=== PATIENT | female | born 1985 | race Hispanic/Latino ===

== ENCOUNTER 2020-06-03 08:37 | Inpatient (IN) | payer MEDICAID ==
--- NOTE | 2020-06-03 09:28 | History and Physical Report ---
History of Present Illness Date of examination: 06/03/20 (Pt here today for IOL; GDM on meds) Date of admission: 06/03/20 08:37 History of present illness: EDC Confirmation: 06/10/2020 Gestational Age: 39w0/7 weeks Past History : 2 Term Births: 1 Premature Births: 0 Living Children: 1 Para: 1 Mult. Births: 0 Prev : 0 Aborta: 0 Elect. Ab: 0 Spont. Ab: 0 Ectopics: 0 # 1 Delivery date: 2006 Weeks Gestation: term labor: no Delivery type: Anesthesia type: none Delivery location: [facility] [place] Infant Sex: Female weight: 6-11 Past Medical History: Reviewed history and no changes required: Gestational Diabetes Past Surgical History: Reviewed history and no changes required: negative Past Medical History Anesthesia Complications: negative Anemia: negative Autoimmune Disorder: negative Bleeding Disorder: negative Blood Transfusions: negative Breast Disease: negative Diabetes: negative Heart Disease: negative Hypertension: negative Hepatitis/Liver Disease: negative Kidney Disease/UTI: negative Neurologic/Epilepsy/Migraines: negative Phlebitis/Varicosities: negative Psychiatric: negative Pulmonary Disease/Asthma: negative Thyroid Disease: negative Hospitalizations: negative Surgery (Non-negative turner): negative Abnormal PAP: negative LOS Exposure: negative Infertility: negative Uterine Anomaly: negative Uterine Surgery (not C/S): negative Other Gynecologic Problems: negative Family Hx: Breast CA: grandmother Lung CA: grandfather Diabetes: Mother, Sister Infection History Hx of STD: none HIV Risk Eval: no Hepatitis B Risk Eval: low risk Personal hx. of genital herpes: no Partner hx. of genital herpes: no Rash, Viral, or Febrile illness since last LMP? no Varicella/Chicken Pox Status: Previous Disease TB Risk: no Genetic History ADVANCED MATERNAL AGE Congenital Heart Defect: Mom: no Dad: no David Disease: Mom: no Dad: no Thalassemia Mom: no Dad: no Neural Tube Defect Mom: no Dad: no Down's Syndrome Mom: no Dad: no Harman-Sachs Mom: no Dad: no Sickle Cell Disease/Trait Mom: no Dad: no Hemophilia Mom: no Dad: no Muscular Dystrophy Mom: no Dad: no Cystic Fibrosis Mom: no Dad: no Geraldo Chorea Mom: no Dad: no Mental Retardation Mom: no Dad: no Fragile X Mom: no Dad: no Other Genetic/Chromosomal Disorder Mom: yes Dad: no Child w/other defect Mom: no Dad: no Comments/Counseling: Sister: MTHFR heterozygous mutation of this genetic disorder Enviromental Exposures Enviromental Exposures Reviewed Xray Exposure: no Medication, drug, or alcohol use since LMP: no Chemical/Other Exposure: no Exposure to Cat Liter: yes Hx of Parvovirus (Fifth Disease): no Occupational Exposure to Children: none 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 Medications: None Current Allergies (reviewed today): * AMOXICILLIN (Critical) Past History - Obstetrical History Expected Date of Delivery: 06/10/20 Actual Gestation: 39 Week(s) 0 Day(s) : 2 Para: 1 Hx # Term Pregnancies: 1 Number of Pregnancies: 0 Spontaneous Abortions: 0 Induced : 0 Number of Living Children: 1 Medications and Allergies Allergies Allergy/AdvReac Type Severity Reaction Status Date / Time amoxicillin Allergy Mild Hives Verified 06/03/20 10:01 Review of Systems All systems: negative - Physical Exam Breasts: Positive: deferred Cardiovascular: Regular rate, Normal S1, Normal S2 Lungs: Positive: Clear to auscultation Abdomen: Positive: normal appearance, soft, normal bowel sounds. Negative: distention, tenderness Genitourinary (Female): Positive: normal external genitalia Vulva: both: normal Vagina: Positive: normal moisture. Negative: discharge Cervix: Negative: lesion, discharge Uterus: Positive: normal size, normal contour Adnexa: both: normal Anus/Rectum: Positive: normal perianal skin, heme negative. Negative: rectal mass, hemorrhoids Extremities: Positive: normal Deep Tendon Reflex Grade: Normal +2 - Obstetrical FHR: category 1 Uterine Contraction Monitor Mode: External Cervical Dilatation: 3 Cervical Effacement Percentage: 50 station: -3 Uterine Contraction Pattern: Irregular Uterine Tone Measurement Phase: Resting Uterine Contraction Intensity: Moderate Results Result Diagrams: 06/03/20 09:51 All other labs normal. GBS NEGATIVE HBsAg Screen Negative Negative *1 RPR Non Reactive Non Reactive *2 Rubella Antibodies, IgG [L] <0.90 index Immune >0.99 *3 Non-immune <0.90 Equivocal 0.90 - 0.99 Immune >0.99 ABO Grouping A *4 Rh Factor Negative *5 Please note: Prior records for this patient's ABO / Rh type are not available for additional verification. Antibody Screen Negative Negative *6 WBC 10.3 x10E3/uL 3.4-10.8 *7 RBC 4.24 x10E6/uL 3.77-5.28 *8 Hemoglobin 11.8 g/dL 11.1-15.9 *9 Hematocrit 36.5 % 34.0-46.6 *10 MCV 86 fL 79-97 *11 MCH 27.8 pg 26.6-33.0 *12 MCHC 32.3 g/dL 31.5-35.7 *13 RDW 12.8 % 11.7-15.4 *14 Platelets 234 x10E3/uL 150-450 *15 Neutrophils 77 % Not Estab. *16 Lymphs 16 % Not Estab. *17 Monocytes 5 % Not Estab. *18 Eos 1 % Not Estab. *19 Basos 0 % Not Estab. *20 ! Immature Cells <No Reported Value> *21 Neutrophils (Absolute) [H] 8.0 x10E3/uL 1.4-7.0 *22 Lymphs (Absolute) 1.7 x10E3/uL 0.7-3.1 *23 Monocytes(Absolute) 0.6 x10E3/uL 0.1-0.9 *24 Eos (Absolute) 0.1 x10E3/uL 0.0-0.4 *25 Baso (Absolute) 0.0 x10E3/uL 0.0-0.2 *26 ! Immature Granulocytes 1 % Not Estab. *27 ! Immature Grans (Abs) 0.1 x10E3/uL 0.0-0.1 *28 ! NRBC <No Reported Value> *29 Hematology Comments: <No Reported Value> *30 Tests: (2) Parvovirus B19, Human, IgG/IgM ([id number]) ! Parvovirus B19, IgG [H] 3.2 index 0.0-0.8 *31 Negative <0.9 Equivocal 0.9 - 1.1 Positive >1.1 ! Parvovirus B19, IgM 0.1 index 0.0-0.8 *32 Negative <0.9 Equivocal 0.9 - 1.1 Positive >1.1 Tests: (3) Toxoplasma gondii Ab, IgG ([id number]) ! Toxoplasma gondii Ab,IgG <3.0 IU/mL 0.0-7.1 *33 Negative <7.2 Equivocal 7.2 - 8.7 Positive >8.7 Tests: (4) Cytomegalovirus (CMV) Ab, IgG ([id number]) ! Cytomegalovirus (CMV) Ab, IgG <0.60 U/mL 0.00-0.59 *34 Negative <0.60 Equivocal 0.60 - 0.69 Positive >0.69 Tests: (5) HIV Ag/Ab with Reflex ([id number]) HIV Screen 4th Generation wRfx Non Reactive Non Reactive *35 Tests: (6) Toxoplasma gondii Ab,IgM ([id number]) ! Toxoplasma gondii Ab,IgM <3.0 AU/mL 0.0-7.9 *36 Negative <8.0 Equivocal 8.0 - 9.9 Positive >9.9 Tests: (7) Comment: ([id number]) ! Comment: SPRCS *37 It is presumed the patient has not been infected with and is not undergoing an acute infection with Toxoplasma. If symptoms persist, submit a new specimen after three weeks. Tests: (8) Gest. Diabetes 1-Hr Screen ([id number]) ! Gestational Diabetes Screen [H] 159 mg/dL 65-139 *38 According to ADA, a glucose threshold of >139 mg/dL after 50-gram load identifies approximately 80% of women with gestational diabetes mellitus, while the sensitivity is further increased to approximately 90% by a threshold of >129 mg/dL. Tests: (9) HCV Ab w/Rflx to Verification ([id number]) ! HCV Ab <0.1 s/co ratio 0.0-0.9 *39 Tests: (10) Comment: ([id number]) ! Comment: SPRCS *40 Non reactive HCV antibody screen is consistent with no HCV infection, unless recent infection is suspected or other evidence exists to indicate HCV infection. Tests: (11) Urine Culture, Routine ([id number]) Urine Culture, Routine [A] Final report *41 Tests: (12) Result ([id number]) ! Result 1 [A] ECV *42 Escherichia coli, identified by an automated biochemical system. Greater than 100,000 colony forming units per mL Cefazolin <=4 ug/mL Cefazolin with an MONICA <=16 predicts susceptibility to the oral agents cefaclor, cefdinir, cefpodoxime, cefprozil, cefuroxime, cephalexin, and loracarbef when used for therapy of uncomplicated urinary tract infections due to E. coli, Klebsiella pneumoniae, and Proteus mirabilis. Assessment and Plan 34yo @ 39w0d for IOL as per AMFM recommendation d/t GDM on meds GBS negative All orders in EMR - Patient Problems (1) Gestational diabetes mellitus (GDM) during childbirth controlled on oral hypoglycemic therapy Onset Date: ~06/03/20 Current Visit: Yes Status: Acute Plan to address problem: Pt is on metformin po for GDM. Will get Q4hr BS and have ordered SSI (2) Rh negative status during Onset Date: ~06/03/20 Current Visit: Yes Status: Acute Plan to address problem: Rh negative Received Rhogam @ 28w gestation. Will check ABS and baby's blood type post delivery
[2020-06-03] MEDS ORDERED: METHYLERGONOVINE MALEATE 0.2 MG/ML VIAL IM PRN (10:00)
[2020-06-03] MEDS ORDERED: MINERAL OIL 30 ML ORAL LIQD PO PRN (10:00)
[2020-06-03] MEDS ORDERED: ePHEDrine SULFATE 50 MG/1 ML INJ IV PRN (10:00)
[2020-06-03] MEDS ORDERED: TERBUTALINE 1 MG/1 ML INJ SUB-Q PRN (10:00)
[2020-06-03] MEDS ORDERED: miSOPROStol 200 MCG TAB PR PRN (10:00)
[2020-06-03] MEDS ORDERED: ONDANSETRON 4 MG/2 ML INJ IV PRN (10:00)
[2020-06-03] MEDS ORDERED: OXYTOCIN DRIP 30 UNITS/500 ML BAG IV SCH ×2 (10:00)
[2020-06-03] MEDS ORDERED: ACETAMINOPHEN 325 MG TAB PO PRN (10:00)
[2020-06-03] MEDS ORDERED: OXYTOCIN 10 UNIT/1 ML INJ IM PRN (10:00)
[2020-06-03] MEDS ORDERED: LIDOCAINE (2%) 20 MG/1 ML VIAL 20 ML MDV INFILTRATI SCH (10:00)
[2020-06-03] MEDS ORDERED: DEXTROSE 50% IN WATER (25GM) 50 ML SYRINGE IV PRN (10:00)
[2020-06-03 10:05] LABS: Hematocrit 34.9 % (30.3-42.9); Hemoglobin 11.7 gm/dl (10.1-14.3); Mean Corpuscular HGB Conc 34 % (30-34); Mean Corpuscular Volume 81 fl (79-97); Platelet Count 206 K/mm3 (140-440); Red Blood Count 4.29 M/mm3 (3.65-5.03); Red Cell Distribution Width 15.1 % (13.2-15.2)
[2020-06-03] MEDS ORDERED: INSULIN REGULAR, HUMAN 100 UNITS/1 ML SUB-Q SCH (11:30)
[2020-06-03] MEDS: LACTATED RINGERS 1,000 ML IV SCH (11:53)
[2020-06-03] MEDS ORDERED: DINOPROSTONE 10 MG VAG SUPP VG NR (20:30)
[2020-06-04] MEDS: LACTATED RINGERS 1,000 ML IV SCH ×2 (05:09→10:49)
--- NOTE | 2020-06-04 07:24 | Progress Note ---
Assessment and Plan A: 34 y.o. @ term, IOL d/t GDM. Cervical exam 2-350/-3. P: Cervidil to be removed @ 0845am. Allow pt to shower and eat. Start Pitocin 2 hours after eating. Subjective - Subjective Date of service: 06/04/20 Principal diagnosis: IUP @ term, IOL d/t GDM Patient reports: contractions (Pt states that she is feelign ctxs. ) Objective - Vital Signs Vital Signs: Vital Signs - 12hr 06/03/20 06/03/20 06/04/20 23:00 23:02 03:35 Temperature 98.3 F 98.1 F Pulse Rate 89 Blood Pressure 137/79 O2 Sat by Pulse 98 Oximetry 06/04/20 03:37 Temperature Pulse Rate 90 Blood Pressure 131/65 O2 Sat by Pulse Oximetry - Exam Narrative Exam: Glucose levels have been 83-121. Breasts: deferred Cardiovascular: Regular rate Lungs: Normal air movement Abdomen: Present: normal appearance, soft Vulva: both: normal Uterus: Present: normal (+) FHR: category 1 Uterine Contraction Monitor Mode: External Cervical Dilatation: 2.5 Cervical Effacement Percentage: 50 station: -3 Uterine Contraction Pattern: Regular Uterine Tone Measurement Phase: Resting Uterine Contraction Intensity: Mild Extremities: normal - Labs Labs: Abnormal Labs 06/03/20 06/03/20 09:51 21:12 MCH 27 L POC Glucose 121 H Laboratory Results - last 24 hr 06/03/20 06/03/20 06/03/20 09:51 09:51 09:51 WBC 9.5 RBC 4.29 Hgb 11.7 Hct 34.9 MCV 81 MCH 27 L MCHC 34 RDW 15.1 Plt Count 206 POC Glucose Syphilis IgG Antibody Nonreactive Blood Type A NEGATIVE Antibody Screen Negative 06/03/20 06/03/20 11:12 21:12 WBC RBC Hgb Hct MCV MCH MCHC RDW Plt Count POC Glucose 83 121 H Syphilis IgG Antibody Blood Type Antibody Screen
--- NOTE | 2020-06-04 08:26 | Event Note ---
<FLAVIO GORE - Last Filed: 06/04/20 08:24> Date: 06/04/20 (Cervidil removed) Consulted with Dr. Interiano and discussed plan. Plan to remove Cervidil and start Pitocin. Explained plan to patient and she verbalized understanding. <CLARY INTERIANO - Last Filed: 06/04/20 09:44> Again explained serial IOL. Questions encouraged and answered, she voiced understanding and agrees with plan of care
--- NOTE | 2020-06-04 11:42 | Progress Note ---
Assessment and Plan A: 34 y.o. @ 39.1 wks, SROM @ 1130 am mec stained fluid. Cervical exam: 60/-3. P: Continue with Pitocin per protocol. Will place internal monitors at next check if cervical exam unchanged. Anticipate . Subjective - Subjective Date of service: 06/04/20 (SROM @ 1130 am, mec stained) Principal diagnosis: IUP @ 39.1 wks, IOL d/t GDM Patient reports: contractions (Pt states that she is feelign ctxs. ) Objective - Vital Signs Vital Signs: Vital Signs - 12hr 06/04/20 06/04/20 03:35 03:37 Temperature 98.1 F Pulse Rate 90 Blood Pressure 131/65 - Exam Narrative Exam: Patient's came to nurses station to say that his 's water had broken. Upon entering room, pt was sitting up in chair and when she stood up, meconium stained fluid was noted on the pad and towel that was on chair. FHR: category 1 Cervical Dilatation: 5 Cervical Effacement Percentage: 60 station: -3 Uterine Contraction Pattern: Regular Uterine Tone Measurement Phase: Resting Uterine Contraction Intensity: Moderate - Labs Labs: Abnormal Labs 06/03/20 06/03/20 09:51 21:12 MCH 27 L POC Glucose 121 H Laboratory Results - last 24 hr 06/03/20 06/03/20 06/03/20 09:51 09:51 21:12 POC Glucose 121 H Syphilis IgG Antibody Nonreactive Blood Type A NEGATIVE Antibody Screen Negative 06/04/20 06:30 POC Glucose 79 Syphilis IgG Antibody Blood Type Antibody Screen
[2020-06-04] MEDS: fentaNYL 100 MCG/2 ML INJ IV PRN ×2 (11:47→17:15)
--- NOTE | 2020-06-04 13:23 | Procedure Note ---
OB Delivery Note - Delivery Date of Delivery: 06/04/20 [employer]: FLAVIO GORE Estimated blood loss: 300cc - Vaginal Delivery presentation: vertex Delivery position: OA Intrapartum events: meconium, mult.variable deceleratio, other(please specify) (Gestational diabetes) Delivery induction: other (Cervicil and Pitocin.) Delivery monitor: none Route of delivery: Delivery placenta: spontaneous Delivery cord: 3 umbilical vessels Episiotomy: none Delivery laceration: 1st degree (No repair needed) Anesthesia: intravenous Delivery comments: of female . to mother abdomen for skin to skin. Cord cut by FOC and clamped by provider after cessation of pulse. Spontaneous delivery of placenta, complete, intact, 3 vessels noted. Sent to pathology d/t GDM. Perineum and vaginal inspected. 1st degree laceration, hemostatic, no repair needed. Fundus firm, minimal bleeding noted. Sponges and instruments counted X2 with RN and correct X2. and mother left in stable condition in the care of RN. - Infant A at 1 minute: 8 at 5 minutes: 9 Gender: Female (Zoya)
[2020-06-04] MEDS ORDERED: LIDOCAINE (2%) 20 MG/1 ML VIAL 20 ML MDV INFILTRATI ONE (17:06)
[2020-06-04] MEDS ORDERED: METHYLERGONOVINE MALEATE 0.2 MG/ML VIAL IM PRN (17:37)
[2020-06-04] MEDS ORDERED: BENZOCAINE/MENTHOL 20/0.5% TOP SPRAY 56 GM TP PRN (17:37)
[2020-06-04] MEDS ORDERED: ONDANSETRON 4 MG/2 ML INJ IV PRN (17:37)
[2020-06-04] MEDS ORDERED: ACETAMINOPHEN 325 MG TAB PO PRN (17:37)
[2020-06-04] MEDS ORDERED: MAGNESIUM HYDROXIDE (MOM) ORAL LIQD UDC PO PRN (17:37)
[2020-06-04] MEDS ORDERED: PROMETHAZINE 25 MG TAB PO PRN (17:37)
[2020-06-04] MEDS ORDERED: LANOLIN/ZINC/DIMETHICONE (LANSINOH) 7 GM TP PRN ×2 (17:37)
[2020-06-04] MEDS ORDERED: CARBOPROST TROMETHAMINE 250 MCG/1 ML INJ IM PRN (17:37)
[2020-06-04] MEDS ORDERED: diphenhydrAMINE 25 MG CAP PO PRN (17:37)
[2020-06-04] MEDS ORDERED: LOPERAMIDE 2 MG CAP PO PRN (17:37)
[2020-06-04] MEDS ORDERED: PROMETHAZINE 25 MG RECT SUPP PR PRN (17:37)
[2020-06-04] MEDS ORDERED: WITCH HAZEL/ GLYCERIN PAD TP PRN (17:37)
--- NOTE | 2020-06-04 17:37 | Event Note ---
Date: 06/04/20 (Pt with continued bleeding) Received call from RN that patient was having some bleeding. Cytotec and Methergine given. Examined laceration and noticed some bleeding from laceration. Lidocaine given to numb area, and Fentanyl IV for pain medication. Laceration repaired with 3-0 Vicryl without difficulty.
[2020-06-04] MEDS ORDERED: IBUPROFEN 600 MG TAB PO SCH (18:00)
[2020-06-04] MEDS ORDERED: ACETAMINOPHEN 500 MG TAB PO PRN (18:20)
[2020-06-04] MEDS: IBUPROFEN 800 MG TAB PO SCH (20:33)
[2020-06-05] MEDS ORDERED: DIPHtheria,PERTUSSIS(ACELL),TETANUS VACCINE/PF 0.5 ML VIAL IM ONE (06:00)
[2020-06-05 06:21] LABS: Hematocrit 31.7 % (30.3-42.9); Hemoglobin 10.6 gm/dl (10.1-14.3)
[2020-06-05] MEDS: IBUPROFEN 800 MG TAB PO SCH ×2 (13:39→18:44)
--- NOTE | 2020-06-05 13:41 | Progress Note ---
Assessment and Plan Lochia scant, fundus firm, H&H 10.6/31.7, VSS w/ exception of temp last night. Encouraged PO hydration, frequent voiding. pt desires d/c home as soon as possible, understands she needs to be monitored for recurrence of temp or s/s infection. - Patient Problems (1) Rh negative status during Onset Date: ~06/03/20 Current Visit: Yes Status: Acute Plan to address problem: rhogam if indicated (2) Spontaneous vaginal delivery Current Visit: Yes Status: Acute Plan to address problem: Anticipate d/c home tomorrow if stable and remains afebrile. (3) Fever Current Visit: Yes Status: Acute Qualifiers: Fever type: fever of unknown origin following delivery Qualified Code(s): O86.4 - Pyrexia of unknown origin following delivery Plan to address problem: tmax 100.9 @ 0040 06/05/2020. no current fever, Covid test negative. no s/s influenza. Will continue to monitor and consider d/c home if afebrile x 24hrs. Subjective - Subjective Date of service: 06/05/20 Principal diagnosis: day #1 s/p , t max 100.9 @ 0040 Patient reports: appetite normal, voiding normally, pain well controlled, flatus, ambulating normally, no dizzy ambulation, no nauseated : doing well, bottle feeding (breast and bottle feeding) Objective - Vital Signs Latest vital signs: Vital Signs Temp Pulse Resp BP BP Pulse Ox 06/05/20 12:35 99 F 76 18 120/56 98 06/05/20 08:55 98.6 F 81 18 113/46 96 06/05/20 04:40 98.7 F 06/05/20 00:40 100.9 F H 88 20 125/50 97 06/04/20 20:20 100.3 F H 06/04/20 17:55 98.2 F 70 20 115/45 96 06/04/20 17:45 98.2 F 18 06/04/20 17:44 78 122/70 06/04/20 17:15 18 06/04/20 14:39 97 H 127/61 Intake and Output 06/04/20 06/05/20 06/05/20 23:59 07:59 15:59 Intake Total 240 360 240 Output Total 400 1000 Balance -160 -640 240 Intake: Oral 240 360 240 Output: Urine 400 1000 Void 400 1000 Other: Total, Intake Amount 240 120 240 Total, Output Amount 400 400 # Voids Void 1 3 - Exam Breasts: Present: normal Cardiovascular: Present: Regular rate Lungs: Present: Clear to auscultation, Normal air movement Abdomen: Present: normal appearance, soft Vulva: both: laceration/episiotomy (healing well) Uterus: Present: normal, firm, fundal height below umbilicus Extremities: Present: normal Deep Tendon Reflex Grade: Normal +2
[2020-06-06] MEDS: IBUPROFEN 800 MG TAB PO SCH ×3 (05:29→12:08)
--- NOTE | 2020-06-06 08:20 | Discharge Summary ---
Providers - Providers Date of Admission: 06/03/20 08:37 Date of discharge: 06/06/20 (desires d/c home) Attending physician: CHRISTINA CEVALLOS Primary care physician: CHRISTINA CEVALLOS Hospitalization Reason for admission: Induction of labor Condition: Good Pertinent studies: post delivery H&H 10.6/31.7 Procedures: Hospital course: uncomplicated , course complicated by fever Disposition: DC-01 TO HOME OR SELFCARE - Discharge Diagnoses (1) Spontaneous vaginal delivery Status: Acute Core Measure Documentation - Palliative Care Palliative Care/ Comfort Measures: Not Applicable - Core Measures Any of the following diagnoses?: none Exam - Constitutional Vitals: Temp Pulse Resp BP Pulse Ox 97.6 F 74 20 116/63 99 06/06/20 00:53 06/06/20 00:53 06/06/20 00:53 06/06/20 00:53 06/06/20 00:53 General appearance: Present: no acute distress, well-nourished - EENT Eyes: Present: PERRL ENT: hearing intact, clear oral mucosa - Neck Neck: Present: supple, normal ROM - Respiratory Respiratory effort: normal Respiratory: bilateral: CTA - Cardiovascular Rhythm: regular Heart Sounds: Absent: rub, click - Extremities Extremities: No edema Peripheral Pulses: within normal limits - Abdominal General gastrointestinal: Present: soft, non-tender, non-distended, normal bowel sounds Female genitourinary: Present: normal - Rectal Rectal Exam: deferred - Integumentary Integumentary: Present: clear, warm, dry - Musculoskeletal Musculoskeletal: gait normal, strength equal bilaterally - Psychiatric Psychiatric: appropriate mood/affect, intact judgment & insight - Neurologic Neurologic: CNII-XII intact, moves all extremities - Additional findings Additional findings: lochia scant, fundus firm, afebrile since 06/05 Plan Activity: no restrictions Diet: regular Follow up with: CHRISTINA CEVALLOS MD [Primary Care Provider] - 7 Days (Congratulations! Please call [phone] to schedule your visit in 4 weeks. Call for any questions or concerns.) Prescriptions: Ibuprofen [Motrin 800 MG tab] 800 mg PO Q8HR PRN #30 tablet PRN Reason: Pain
[2020-06-06 18:26] VITALS: BP 112/74
== END 2020-06-06 17:30 | disposition home or self-care (01) | DRG 774 ==
LOC: LD 08:37 → OB 06-04 18:06
PROVIDERS: ADMIT Obstetrics & Gynecology; ATTEND Obstetrics & Gynecology
PROC: 10E0XZZ Delivery of Products of Conception, External Approach (ICD-10-PCS; principal; 2020-06-04)
PROC: 3E0P7VZ Introduction of Hormone into Female Reproductive, Via Natural or Artificial Opening (ICD-10-PCS; 2020-06-04)
PROC: 0HQ9XZZ Repair Perineum Skin, External Approach (ICD-10-PCS; 2020-06-04)
PROC: 3E0234Z Introduction of Serum, Toxoid and Vaccine into Muscle, Percutaneous Approach (ICD-10-PCS; 2020-06-05)
PROC: 3E0234Z Introduction of Serum, Toxoid and Vaccine into Muscle, Percutaneous Approach (ICD-10-PCS; 2020-06-05)
DX: O24.425 Gestational diabetes mellitus in childbirth, controlled by oral hypoglycemic drugs (principal); O86.4 Pyrexia of unknown origin following delivery; Z3A.39 39 weeks gestation of pregnancy; Z37.0 Single live birth; Z88.1 Allergy status to other antibiotic agents; O26.893 Other specified pregnancy related conditions, third trimester; Z67.91 Unspecified blood type, Rh negative; Z23 Encounter for immunization; O77.0 Labor and delivery complicated by meconium in amniotic fluid; O76 Abnormality in fetal heart rate and rhythm complicating labor and delivery; O70.0 First degree perineal laceration during delivery; Z20.822 Contact with and (suspected) exposure to COVID-19
CPT/HCPCS: 36415; 59200; 82947; 82962; 85014; 85018; 85027; 85461; 86592; 86850; 86900; 86901; 88307; G0378; J2210; J2405; J2590; J2790; J3010; J7120; U0003